=== PATIENT | male | born 1980 | race Caucasian/White ===

== ENCOUNTER 2022-06-25 05:28 | Day surgery (SDC) | payer OTHER, BC ==
[2022-06-22 10:29] LABS: BASOPHILS # (AUTO) 0.1 X10'3 (0-0.2); EOSINOPHILS # (AUTO) 0.1 X10'3 (0-0.9); EOSINOPHILS % (AUTO) 1.3 % (0-6); LYMPHOCYTES # (AUTO) 1.7 X10'3 (1.1-4.8); LYMPHOCYTES % (AUTO) 29.9 % (21-51); MEAN CORPUSCULAR HEMOGLOBIN 30.9 PG (27.0-31.0); MEAN CORPUSCULAR HGB CONC 34.8 g/dL (33.0-36.5); MEAN CORPUSCULAR VOLUME 88.8 FL (78-98); MEAN PLATELET VOLUME 7.6 FL (7.4-10.4); MONOCYTES # (AUTO) 0.5 X10'3 (0-0.9); MONOCYTES % (AUTO) 9.1 % (2-12); NEUTROPHILS # (AUTO) 3.3 X10'3 (1.8-7.7); NEUTROPHILS % (AUTO) 58.7 % (42-75); PRE OP PLATELET COUNT 213 X10'3 (140-440); RED BLOOD COUNT 5.18 X10'6 (4.70-6.10); RED CELL DISTRIBUTION WIDTH 13.4 % (11.5-14.5)
[2022-06-22 10:44] LABS: ALBUMIN 4.2 G/DL (3.4-5.0); ALBUMIN/GLOBULIN RATIO 1.1 (1.1-1.5); ALKALINE PHOSPHATASE 57 IU/L (46-116); BLOOD UREA NITROGEN 16 MG/DL (7-18); BUN/CREATININE RATIO 14.3 (10.0-20.0); CALCIUM 10.1 MG/DL (8.5-10.1); CHLORIDE 101 MMOL/L (99-107); CREATININE 1.12 MG/DL (0.60-1.10); PRE OP ALT 39 U/L (30-65); PRE OP ANION GAP 10 (8-16); PRE OP AST 28 U/L (10-37); PRE OP BILIRUB, TOTAL 0.5 MG/DL (0.0-1.0); PRE OP GLUCOSE 101 MG/DL (70-104); PRE OP POTASSIUM 4.2 MMOL/L (3.4-5.1); PRE OP SODIUM 136 MMOL/L (135-145); TOTAL CARBON DIOXIDE 25.5 MMOL/L (24-32); TOTAL PROTEIN 8.2 G/DL (6.4-8.2); eGFR 72 ML/MIN
[~2022-06-25] VITALS: Ht 195.6 cm; Wt 139.2 kg
[2022-06-25] VITALS (11 sets, daily range): BP systolic 120–138; BP diastolic 41–88
[~2022-06-25 05:28] MED LIST: FENO145T25 PO; HYDR200T84 PO; LISI1TAB51 PO; MELO-102 PO; OMEP20TA43 PO; ringers solution, lacted 1,000 ML IV SCH
[2022-06-25] MEDS ORDERED: famotidine 20mg tablet PO ONE (05:30)
[2022-06-25] MEDS ORDERED: ceFAZolin inj. 3,000 MG in normal saline 100ml IV soln 100 ML IV ONE (05:30)
[2022-06-25] MEDS ORDERED: LIDOcaine 1% 30ml preserv. free vial ONE (06:45)
[2022-06-25] MEDS ORDERED: BUPIVAcaine/PF 2.5 mg/ml (0.25%) 30ml vial ONE (06:45)
[2022-06-25] MEDS ORDERED: midazolam 1 mg/ML 2ml injection ONE ×2 (07:24→07:25)
[2022-06-25] MEDS ORDERED: fentaNYL /PF 50mcg/ml 5ml ampule ONE (07:25)
[2022-06-25] MEDS ORDERED: neostigmine methylsulfate 1 MG/ML 10ml vial ONE (07:26)
[2022-06-25] MEDS ORDERED: propofol inj 20 ML IV ONE ×2 (07:26)
[2022-06-25] MEDS ORDERED: rocuronium 10mg/ml inj IV ONE ×2 (07:26)
[2022-06-25] MEDS ORDERED: LIDOcaine 2% (20mg/ml) 5ml vial ONE (07:26)
[2022-06-25] MEDS ORDERED: glycopyrrolate 0.2mg/ml inj ONE (07:26)
[2022-06-25] MEDS ORDERED: ondansetron/PF 4mg/2ml inj ONE (07:27)
[2022-06-25] MEDS ORDERED: dexamethasone sod phosphate 4mg/ml inj. ONE (07:27)
[2022-06-25] MEDS ORDERED: labetalol 20mg/4ml (5mg/ml) syringe IV PRN (08:00)
[2022-06-25] MEDS ORDERED: ringers solution, lacted 1,000 ML IV SCH (08:00)
[2022-06-25] MEDS ORDERED: morphine 4 MG/ML inj SYRINge IV PRN (08:00)
[2022-06-25] MEDS ORDERED: ondansetron/PF 4mg/2ml inj IV PRN (08:00)
[2022-06-25] MEDS ORDERED: morphine 2 MG/ML inj. syringe IV PRN (08:00)
[2022-06-25] MEDS ORDERED: hydrALAZINE 20mg/ml inj. IV PRN (08:00)
[2022-06-25] MEDS ORDERED: fentaNYL/PF 50MCG/1 ML 2ML syringe IV PRN ×2 (08:00)
--- NOTE | 2022-06-25 09:13 | NUR ---
Received from OR via [facility] TO RECOVERY ROOM 7, accompanied by Anesthesiologist DR WITT and report given by Anesthesiolgist. PT PRESENTS WITH PIV 20G L HAND, LR RUNNING AT 100MLS/HR, 3 BANDAIDS WITH DERMABOND AND STERI STRIPS, SPO2 99% 10L MASK, VSS. Addendum: 06/25/22 at 0926 by Isabelle Gill RN, RN Amended: Links added.
[2022-06-25] MEDS ORDERED: HYDROcodone/acetaminophen 5mg/325mg tablet PO PRN (09:35)
--- NOTE | 2022-06-25 11:05 | NUR ---
PT AT BEDSIDE [facility] URINAL TRYING TO URINATE AT THIS TIME.
--- NOTE | 2022-06-25 11:33 | NUR ---
PT URINATED 150MLS IN URINAL, BLADDER SCAN SHOWS 47 MLS IN BLADDER. Addendum: 06/25/22 at 1156 by Isabelle Gill RN, RN Amended: Links added.
--- NOTE | 2022-06-25 11:33 | NUR ---
PT IS ABLE TO AMBULATE AND TRANSFER BY HIMSELF. IV DC'D WITH CANNULA INTACT. DC INSTRUC TIONS REVIEWED WITH PT. I HAVE REVIEWED D/C INSTRUCTIONS WITH PATIENT and they have verbalized understanding. PT TAKEN OUT TO PRIVATE VEHICLE BY WHEELCHAIR BY VIPIN WHIPPLE. patient d/c home with all belongings and gave transport home. Addendum: 06/25/22 at 1156 by Isabelle Gill RN, RN Amended: Links added.
== END 2022-06-25 11:33 | disposition home or self-care (01) ==
LOC: PAS 05:28
PROVIDERS: ATTEND Surgery
DX: K40.90 Unilateral inguinal hernia, without obstruction or gangrene, not specified as recurrent (principal); I10 Essential (primary) hypertension; K21.9 Gastro-esophageal reflux disease without esophagitis; M19.90 Unspecified osteoarthritis, unspecified site; Z79.899 Other long term (current) drug therapy; Z98.890 Other specified postprocedural states
CPT/HCPCS: 36415; 49650; 80053; 82948; 85025; 93005; C1781; J0690; J1100; J2250; J2405; J2704; J2710; J3010; J3490; J7030; J7120; S2900; Z7506; Z7508; Z7512; A4215; A4618